=== PATIENT | female | born 1940 | race Caucasian/White ===

== ENCOUNTER → 2023-10-18 11:23 | Outpatient (REF) | payer OTHER, SELFPAY | LOC: HWRAD 11:23 | PROVIDERS: ATTENDING PHYSICIAN Family Medicine | DX: M81.6 Localized osteoporosis [Lequesne] (principal); Z12.31 Encounter for screening mammogram for malignant neoplasm of breast | CPT/HCPCS: 77063; 77067; 77080 ==